=== PATIENT | female | born 1945 | race Caucasian/White ===

== ENCOUNTER 2023-05-29 10:07 | Outpatient (REF) | payer MEDICARE, SELFPAY ==
--- NOTE | ~2023-05-29 | XR_ITS ---
EXAMINATION: XR HIP, LEFT CLINICAL INFORMATION: Spondylolisthesis, lumbar region Left hip pain COMPARISON: None available. TECHNIQUE: Two views of the left hip. FINDINGS: The patient is status post right total hip replacement. The acetabular component is secured with 2 screws. No fracture. No periprosthetic lucency. Small calcification adjacent to the greater trochanter can be seen with gluteal tendinosis. XR/XR hip LT min 2V IMPRESSION: Satisfactory appearance of left total hip replacement without evidence of hardware complication.
--- NOTE | ~2023-05-29 | XR_ITS ---
EXAMINATION: XR LUMBOSACRAL SPINE CLINICAL INFORMATION: Spondylolisthesis, lumbar region COMPARISON: None available. TECHNIQUE: 4 views of the lumbar spine, inclusive of flexion and extension views, were obtained. FINDINGS: There is moderate curve of the lumbar spine, convex right. There is evidence of prior laminectomy at L3, L4 and L5. There are 5 nonrib-bearing lumbar-type vertebral bodies. The height of vertebral bodies is well-maintained. There is marked disc space narrowing with vacuum phenomenon at L1-L2 and L2-L3. There is multilevel degenerative facet joint disease. There is grade 1 anterolisthesis of L3 respect to L4 and L4 with respect to L5. This is without significant change with flexion and extension. There is partial visualization of bilateral total hip replacements. Multiple calcifications in the right side of the abdomen may be within the gallbladder. XR/XR lumbar spine 4V min IMPRESSION: 1. Moderate curve of the lumbar spine, convex right. 2. Status post laminectomy at L3, L4 and L5. 3. Multilevel degenerative disc disease and degenerative facet joint disease.
== END 2023-05-29 10:08 | disposition home or self-care (01) ==
LOC: HO.HOSX 10:07
PROVIDERS: PCP Internal Medicine; Visit Provider Physician Assistant
DX: M43.16 Spondylolisthesis, lumbar region (principal)
CPT/HCPCS: 72110; 73502

== ENCOUNTER 2023-05-29 10:07 | Outpatient (AMB) | payer MEDICARE, SELFPAY ==
--- NOTE | 2023-05-29 11:07 | HO.SPINEOV ---
Intake Intake Visit Reasons: spinal stenosis Intake Note: Mrs. Bowman is here today for low pain and left leg pain. MRI done @ [facility]/brought disc. 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 She is a 77-year-old female presents today for evaluation of a left lateral leg pain. She has had [address] Bee at [facility]. The last surgery was in 2019. She tells me that shortly after the surgery she noticed a pain in the outside of her left leg. At the time it was not all that bothersome but it has steadily gotten worse. She does not report any back pain other than some chronic aches and pains that she has had for many years. She saw him in the office and he was going to put rods and screws in her back, but then re-evaluated in said he did not think there was anything wrong with her back. She was somewhat frustrated by this. She has undergone injections at your office which she did not think that much in the way of helping her symptoms. She has not done any recent physical therapy but has done in the past. Her symptoms are aggravated with standing walking get better when she sits down. She has a hard time doing things like the dishes or making meals. She takes Tylenol and ibuprofen if she is having a bad day. She had an MRI showing some persistent compression of the foramen at the L2 and L3 foramen on the left and the L5 foramen on the right. PMH: Hypertension, arthritis, asthma, bronchitis. She recently had pneumonia and tells me that her PCP is working her up with some kind of serial CT scans of her chest check on something. She did not have any more details. History of neuropathy. She has had carpal tunnel surgery in both wrists, both hips replaced and as mentioned 3 back surgeries. Social hx: She does not smoke, she quit 30 years ago Medications: Lasix, omeprazole, raloxifene, montelukast, rosuvastatin, symbacort Allergies: Denies any drug allergy Physical exam: Her gross motor examination reveals that she has no focal motor deficits. She does have a positive straight leg raise as well as significant tenderness to palpation over left trochanteric bursa. Imaging review: She had a lumbar MRI done at [facility] in February 2023 showing a dextroscoliosis with significant compression in the foramen at L2 and L3 on the left and L4 and L5 on the right. Standing x-rays show slight worsening of the scoliosis but no significant lateral listhesis. Impression: 77-year-old female with 3 previous decompression surgeries by , who has developed a pain in her left lateral thigh with standing and walking over the last few years. She has treated it conservatively with physical therapy, pain medications. An L5 TFE was done with no relief. On my examination she had a tremendous amount of reproducible pain with palpation of the trochanteric bursa. Her MRI shows that she has significant scoliotic curvature with compression of the left L2 and L3 nerve in the foramen. Her symptoms are not classic for the distribution of these nerves, which would typically be going down the anterior portion of the thigh. This patient's symptoms are on the outer edge near the ITB band and the lateral thigh. Although her symptoms are not typical for the dermatomal pattern, I think we should try to localize where the symptoms are coming from with TFE at L2 and L3 on the left. If there is significant pain relief then we could consider surgical options after that. Also, it may be worth trying a trochanteric bursa injection as well because of the tenderness over that area. I will send her back to your office to get the TFE and she will call me with the results. Thank you for allowing us to care for your patient. The total time spent with this visit with this patient was 45 minutes reviewing history, physical exam, lumbar imaging review, and implementation of treatment plan or further diagnostic testing Gabriel Smith MD,PhD [facility] Orders: Orders XR lumbar spine 4V min Today M43.16 - Spondylolisthesis, lumbar region XR hip LT min 2V Today M43.16 - Spondylolisthesis, lumbar region Coding Level of Care Code New Pt Level 4 (34997) Diagnoses Spondylolisthesis, lumbar region M43.16
== END 2023-05-29 12:21 | disposition home or self-care (01) ==
PROVIDERS: PCP Internal Medicine; Referring Provider Physical Medicine & Rehabilitation; Visit Provider Physician Assistant
DX: M43.16 Spondylolisthesis, lumbar region (principal)
CPT/HCPCS: 99204

== ENCOUNTER 2023-07-08 15:09 | Outpatient (AMB) | payer MEDICARE, SELFPAY ==
--- NOTE | 2023-07-08 15:23 | A.SPINEOV_ITS ---
Intake Intake Visit Reasons: f/u after visit with Intake Note: Mrs. Bowman is here today for follow up. Sports Physician Required: No Assessment & Plan Assessment & Plan (1) Lumbago: Code(s): M54.50 - Low back pain, unspecified Plan Alyssia was seen today in follow up. We extensively discussed her continued left- sided pain symptoms down the lateral aspect of her thigh. We also discussed her recent left-sided TFE injections. She reports that after having her TFE injections completed at [facility] she had complete relief of her symptoms for 1 day then had a gradual return to baseline of her symptoms over the course of the next week. She reports that her left-sided lower extremity pain continues to significantly impede on her ability to complete her ADLs and live a meaningful life. Please refer to her previous office visit for a detailed description of her symptomology and exam. She was evaluated today alongside Dr. Smith. She continues to have symptoms outlined during her previous office visit, with her predominant pain complaint being a pain that radiates from her left low back/hip down her left lateral thigh terminating at the knee. Dr. Smith reviewed her MRI from [facility], and offered her a left-sided L2, L3 foraminotomy. She is aware that a foraminotomy in th esetting of scoliosis carries the risk that the symptoms return. Unfortunarely, she is not a candidate for scoliosis correction. She was agreeable to this plan is scheduled for surgery on 09/15/2023. Alyssia was given risk and benefits of surgery including but not limited to infection, hematoma, nerve injury, durotomy, weakness, bowel/bladder injury, persistent pain, as well as the option to continue with conservative treatment and patient wishes to proceed with surgery. She is aware they should stop her motrin / aspirin 7 days prior to surgery. All questions were answered to the best of our ability. If there is anything about this patients medical history that we have overlooked or concerns you have about us proceeding with surgery we would appreciate any input you can offer. Total amount of time spent in this visit was 45 minutes in discussion of symptoms, MRI imaging results, surgical scheduling and subsequent plan of care Ted Smith MD,PhD [facility] Coding Level of Care Code Est Pt Level 5 (86231) Diagnoses Lumbago M54.50
== END 2023-07-08 16:07 | disposition home or self-care (01) ==
PROVIDERS: PCP Internal Medicine; Visit Provider Neurological Surgery
DX: M54.50 Low back pain, unspecified (principal)
CPT/HCPCS: 99215

== ENCOUNTER → 2023-07-08 15:09 | Outpatient (BNVA) | payer MEDICARE, SELFPAY | PROVIDERS: PCP Internal Medicine; Visit Provider Neurological Surgery | DX: M54.50 Low back pain, unspecified (principal) | CPT/HCPCS: 99212 ==

== ENCOUNTER 2023-09-24 05:52 | Day surgery (SDC) | payer MEDICARE, SELFPAY ==
[2023-09-16 13:50] VITALS: BP 119/56; PULSE 94; RESP 16; O2SAT 94; BMI 33.4
--- NOTE | 2023-09-16 14:04 | HO.ANESPROP2 ---
Documented by User: Kacy Castellanos NP 09/23/23 08:21 HPI - Anesthesia Eval Consult details Narrative: 78yo F for L2-3 Laminectomy Lumbar Decompression (Foraminotomy) Recent RSV. Chronic occassional congested cough, slowly improving. Pending new patient pulmonary visit (after surgery). No CP. SOB with coughing but none at rest Asthma. Symbicort inhaler BID, Albuterol rare - last used couple months ago. New dizziness 08/2023, resolved per pt and nml holter. Last PCP visit 09/2023. Improving. Updated CXR Prior interstitial thickening upper zones less apparent. . Case reviewed with Dr Pike. SIRIA for re-eval DOS. PMFSH Active Problems Active Problems: All Active Problems (Updated 09/16/23 @ 13:43 by Meka Laws RN) Lumbago (Acute) Spondylolisthesis, lumbar region (Acute) Past Medical History Medical History Cough History of RSV infection Back pain Hx of basal cell carcinoma Spinal stenosis Weakness Lumbar radiculopathy Peripheral neuropathy Numbness Elevated cholesterol HTN (hypertension) Family History Family history of problems with anesthesia: No Surgical History Surgical History Hx of laminectomy (~2017) History of bilateral total hip arthroplasty History of bilateral carpal tunnel release History of Problems with Anesthesia: No Social History Social History Household Members: Spouse Housing: House Are you a primary social worker palliative care to a significant other at home: No Do you presently have visiting nurse or other home services: No Patient Tobacco Use Status: Former Tobacco user Quit Date: Tobacco use type: Cigarette Use of substances other than those prescribed or required for medical reasons: No Have you been hit, kicked, punched, or otherwise hurt by someone within the past year? If so, by whom?: No Are you DNR?: No Advance Directives: No Advance Directives Information Provided: Yes Advance Directives on File: No Recently lost weight without trying: No Poor oral hygiene: No Meds Allergies Allergy/AdvReac Type Severity Reaction Status Date / Time No Known Allergies Allergy Verified 09/24/23 06:24 Home Medications Medication Instructions Recorded Confirmed Last Taken Type allopurinol 100 mg tablet 300 mg PO DAILY 09/15/23 09/15/23 Unknown History aspirin 81 mg chewable tablet 81 mg PO DAILY 09/15/23 09/16/23 02/12/23 History budesonide-formoterol HFA 160 2 inh inhalation BID 09/15/23 09/16/23 09/24/23 History mcg-4.5 mcg/actuation aerosol inhaler (Symbicort) furosemide 20 mg tablet 20 mg PO .DAILY@1300 09/15/23 09/16/23 Unknown History furosemide 40 mg tablet 60 mg PO .DAILY @0800 09/15/23 09/16/23 Unknown History gabapentin 300 mg capsule 600 mg PO .DAILY@1300 09/15/23 09/16/23 09/24/23 History gabapentin 600 mg tablet 900 mg PO BID 09/15/23 09/16/23 09/24/23 History lisinopril 5 mg tablet 5 mg PO DAILY 09/15/23 09/15/23 Unknown History montelukast 10 mg tablet 10 mg PO BEDTIME 09/15/23 09/15/23 Unknown History omega 2-dcc-zof-fish oil 1,000 mg 1 cap PO DAILY 09/15/23 09/16/23 09/15/23 History (120 mg-180 mg) capsule (Fish Oil) omeprazole 20 mg capsule,delayed 20 mg PO DAILY 09/15/23 09/15/23 09/24/23 History release raloxifene 60 mg tablet 60 mg PO DAILY 09/15/23 09/15/23 Unknown History rosuvastatin 10 mg tablet 10 mg PO BEDTIME 09/15/23 09/15/23 Unknown History albuterol sulfate 90 mcg/actuation 2 inh inhalation Q4-6H PRN 09/16/23 09/16/23 Unknown History aerosol inhaler Shortness Of Breath Or Wheezing Exam Height,Weight and Vital Signs: Height 4 ft 10 in Weight 72.575 kg Last Vital Signs Pulse 94 09/16/23 13:50 Resp 16 09/16/23 13:50 BP 119/56 L 09/16/23 13:50 Pulse Ox 94 09/16/23 13:50 O2 Del Method Room Air 09/16/23 13:50 Pertinent Lab Results Pertinent Lab Results: CBC 04/2023 from outside facility WNL BMP 04/2023 from outside facility WNL except BUN/Creat elevated @ 31/1.42 Narrative Narrative: CXR 08/2023 from [facility] Heart normal. Lungs clear. Prior interstitial thickening upper zones less apparent. Otherwise negative. Pleural spaces and bones unremarkable. 7 Day Holter 08/2023 SR with avg HR of 84bpm. No pauses >2.5secs. Rare isolated ectopy and occasional brief atrial runs detected. 1 monitor activation corresponded to SR. EKG 08/2023 SR Airway Mallampati Class: III TM Dist: >3cm Neck ROM: Full Loose/Missing/Broken Teeth: Yes (missing molars, 1 x implant left lower front) Heart: RRR Lungs: CTAB Assessment and Plan Assessment Anesthesia Assessment: Anesthesia Plan Discussed and PAT Visit Final Anesthetic Review Family History of Problems with Anesthesia: No History of Problems with Anesthesia: No Documented by User: Rafat Orozco MD 09/24/23 08:12 [facility] Past Medical History Medical History Cough History of RSV infection Back pain Hx of basal cell carcinoma Spinal stenosis Weakness Lumbar radiculopathy Peripheral neuropathy Numbness Elevated cholesterol HTN (hypertension) Surgical History Surgical History Hx of laminectomy (~2017) History of bilateral total hip arthroplasty History of bilateral carpal tunnel release Social History Social History Household Members: Spouse Housing: House Are you a primary social worker palliative care to a significant other at home: No Do you presently have visiting nurse or other home services: No Patient Tobacco Use Status: Former Tobacco user Quit Date: Tobacco use type: Cigarette Use of substances other than those prescribed or required for medical reasons: No Have you been hit, kicked, punched, or otherwise hurt by someone within the past year? If so, by whom?: No Are you DNR?: No Advance Directives: No Advance Directives Information Provided: Yes Advance Directives on File: No Recently lost weight without trying: No Poor oral hygiene: No Meds Allergies Allergy/AdvReac Type Severity Reaction Status Date / Time No Known Allergies Allergy Verified 09/24/23 06:24 Home Medications Medication Instructions Recorded Confirmed Last Taken Type allopurinol 100 mg tablet 300 mg PO DAILY 09/15/23 09/15/23 Unknown History aspirin 81 mg chewable tablet 81 mg PO DAILY 09/15/23 09/16/23 02/12/23 History budesonide-formoterol HFA 160 2 inh inhalation BID 09/15/23 09/16/23 09/24/23 History mcg-4.5 mcg/actuation aerosol inhaler (Symbicort) furosemide 20 mg tablet 20 mg PO .DAILY@1300 09/15/23 09/16/23 Unknown History furosemide 40 mg tablet 60 mg PO .DAILY @0800 09/15/23 09/16/23 Unknown History gabapentin 300 mg capsule 600 mg PO .DAILY@1300 09/15/23 09/16/23 09/24/23 History gabapentin 600 mg tablet 900 mg PO BID 09/15/23 09/16/23 09/24/23 History lisinopril 5 mg tablet 5 mg PO DAILY 09/15/23 09/15/23 Unknown History montelukast 10 mg tablet 10 mg PO BEDTIME 09/15/23 09/15/23 Unknown History omega 3-gpx-wwz-fish oil 1,000 mg 1 cap PO DAILY 09/15/23 09/16/23 09/15/23 History (120 mg-180 mg) capsule (Fish Oil) omeprazole 20 mg capsule,delayed 20 mg PO DAILY 09/15/23 09/15/23 09/24/23 History release raloxifene 60 mg tablet 60 mg PO DAILY 09/15/23 09/15/23 Unknown History rosuvastatin 10 mg tablet 10 mg PO BEDTIME 09/15/23 09/15/23 Unknown History albuterol sulfate 90 mcg/actuation 2 inh inhalation Q4-6H PRN 09/16/23 09/16/23 Unknown History aerosol inhaler Shortness Of Breath Or Wheezing Assessment and Plan Final Anesthetic Review NPO: Yes ASA Class: III Final Preanesthetic Review: No Changes in Pt Med Stat, Meds/Allgs Chart Reviewed, Consent Obtained/Reviewed and Anes Risks/Benef Reviewed Patient Risk: Intermediate Procedure Risk: Low Anesthetic Plan Anesthetic Plan: GA Disposition: Standard PACU and Inp. Admit - Standard Bed
[2023-09-24] VITALS (15 sets, daily range): BP systolic 105–136; BP diastolic 45–87; PULSE 84–92; RESP 14–20; TEMP 36.2–36.9; O2SAT 95–99; BMI 34.3
--- NOTE | ~2023-09-24 | FL_ITS ---
CLINICAL INDICATION: Back pain. FINDINGS: Technical assistance and equipment were provided by the Department of Radiology during intraoperative fluoroscopy for L2-3 laminectomy. 2, limited fluoroscopic spot images are submitted. A radiologist was not present during the procedure. Images demonstrate surgical retractors and hardware to the left of the apex of the lumbar spinal curvature, probably at the level of L2, although it is difficult to ascertain the exact level due to normal variant anatomy and incomplete bony landmarks. The images are available for review on PACS. TOTAL FLUOROSCOPY TIME: 0.1 minutes. DOSE AREA PRODUCT: 0.10 mGy-m2 (milligray-meter squared) FL/FL guidance in OR IMPRESSION: Technical assistance and equipment provided by the Department of Radiology during intraoperative fluoroscopy, as above. Please see operative report for further details.
[2023-09-24] MEDS: Lactated Ringers 1,000 ML 100 ML IVCONT (06:39)
[2023-09-24] MEDS: Albuterol Sulfate (0.083%) 2.5 MG/3 ML VIAL.NEB INHALE (06:45)
--- NOTE | 2023-09-24 07:02 | MHC.SHP ---
Pre-Procedural Eval Section A Date of Service: 09/24/23 The patient is an INPATIENT: No Changes since office visit: No Cold of Flu in the past 2 weeks, No New Medical Problems, No Changes in Medication and No Patient answered all questions The History & Physical has been completed within 30 days and I have reviewed it.: No Section B Chief Complaint: Low back pain, unspecified Allergies: Allergies Allergy/AdvReac Type Severity Reaction Status Date / Time No Known Allergies Allergy Verified 09/24/23 06:24 Review of Systems Sugical H&P ROS: Negative: Constitution, Cardiovascular, Respiratory, Neurological, Psychiatric, Hem-Onc, Allergic/Immunologic, Gastrointestinal, Genitourinary, Musculoskeletal, Integumentary, Endocrine and Eyes/Ears/Nose/Throat Exam Surgical H&P Exam: Not Evaluated: HEENT, Not Evaluated: Heart, Not Evaluated: Lungs, Not Evaluated: Extremities, Not Evaluated: Abdomen, Not Evaluated: Skin and Not Evaluated: Neurological Plan Diagnosis/Plan: Unchanged Left L2 and L3 foraminotomy Time Spent With Patient Time: Total time managing care of this patient today _5___ minutes.
[2023-09-24] MEDS: methocarbamoL 750 MG TABLET PO (07:32)
--- NOTE | 2023-09-24 07:37 | PC.NURSE ---
Dr. Orozco aware that patient was to be evaluated by anesthesia upon arrival due to lung health. Patient has some crackles in bilateral bases and left upper has expiratory wheezes. nebulizer treatment given as ordered and lung sounds remained the same. 94-95% RA. occ. cough noted. Patient has pulmonology appt. on 10/07 due to cough that has been consistent for a few months, and RSV three weeks ago with prednisone taper completed. Patient states has been taking lasix for years due to BLE, but cough is new months ago.
--- NOTE | 2023-09-24 09:17 | PM.DS ---
DS: Providers Provider Date of Service: 09/24/23 Date of discharge: 09/24/23 Primary care physician: Nonstaff Physician Admitting clinician: Jamie Smith DS: Diagnosis Discharge Diagnosis (1) Lumbago: Status: Acute (2) Spondylolisthesis, lumbar region: Status: Acute DS: Summary Time Attestation Discharge coordination time: Less than 30 minutes Quality: Safe Use of Opioids Does Pt have an Active Cancer Diagnosis on the Problem List?: No Quality: Stroke Does the patient have a stroke diagnosis?: No Physical Exam Vital Signs: Vital Signs: Last Vital Signs Temp 98.5 F 09/24/23 06:45 Pulse 92 09/24/23 06:46 Resp 14 09/24/23 06:46 BP 130/45 L 09/24/23 06:45 Pulse Ox 95 09/24/23 06:45 O2 Del Method Room Air 09/24/23 06:45 BMI result Body Mass Index 34.3 Discharge Plan Discharge Patient Disposition: Home, Self-Care Referrals: Physician,Nonstaff [Primary Care Provider] - 1 Week Discharge Medications: New tramadol 50 mg tablet 50 mg PO Q6H PRN (Reason: pain) Qty: 20 0RF Continued allopurinol 100 mg tablet 300 mg PO DAILY aspirin 81 mg Tablet,Chewable 81 mg PO DAILY furosemide 20 mg Tablet 20 mg PO .DAILY@1300 Patient Comments: 60 mg am, 20 mg late afternoon omega 2-nyt-mwr-fish oil [Fish Oil] 1,000 mg (120 mg-180 mg) Capsule 1 cap PO DAILY gabapentin 600 mg tablet 900 mg PO BID gabapentin 300 mg capsule 600 mg PO .DAILY@1300 omeprazole 20 mg capsule,delayed release(DR/EC) 20 mg PO DAILY raloxifene 60 mg tablet 60 mg PO DAILY montelukast 10 mg tablet 10 mg PO BEDTIME rosuvastatin 10 mg tablet 10 mg PO BEDTIME budesonide-formoterol [Symbicort] 160-4.5 mcg/actuation HFA aerosol inhaler 2 inh inhalation BID furosemide 40 mg tablet 60 mg PO .DAILY @0800 lisinopril 5 mg Tablet 5 mg PO DAILY albuterol sulfate 90 mcg/actuation HFA aerosol inhaler 2 inh inhalation Q4-6H PRN (Reason: Shortness Of Breath Or Wheezing) Discharge Orders: Discharge Order (Routine); Ordered 09/24/23 Ordered By: Gabriel Gonzalez Diet: Advance to usual diet Activity on Discharge: As tolerated Activity Restrictions/Additional Instructions: After your spinal surgery we ask you to observe the following restrictions/guidelines: We were unable to to complete the surgery as planned because of the previous scar tissue and the difficulty of finding the nerve in the scar tissue. Dr Smith would like to get an outpatient CT scan of your spine to re-evaluate your bone quality and anatomy to see if we can do spinal fusion. YOU HAD A SMALL SPINAL FLUID LEAK SEEN AT THE TIME OF SURGERY. IT IS NORMAL TO EXPERIENCE MILD HEADACHES WHEN THIS HAPPENS. IF YOU EXPERIENCE SEVERE HEADACHES PLEASE CALL OUR OFFICE TO UPDATE US. USUALLY IT WILL GO AWAY IF YOU STAY FLAT IN BED FOR A DAY. IF YOU EXPERIENCE ANY LEAKING FROM YOUR WOUND WHICH LOOKS LIKE CLEAR WATER, WE ASK THAT YOU CALL US RIGHT AWAY. [phone] Activity: It is normal to feel some discomfort as you increase your activity, but that will improve with time. We ask you avoid heavy lifting or acitivities that cause pain. As a general rule, 8lbs is a safe limit for lifting right after surgery. Walk as much as you feel comfortable but not to exhaustion. You will feel extra tired the first few days after surgery. Stay well hydrated. It is OK to walk up and down stairs You may return to driving when you are off narcotics (such as vicodin, oxycodone, dilaudid, etc), and you are back to normal functional capacity. If you have any concerns please check with office before driving. Return to work is specific to each patient and each surgery, so please speak with your doctor/PA at first follow up. Please bring paperwork such as FMLA at that time if you need it filled out. Medications: For optimum pain control, it is best to start with a combination of 500 mg of Tylenol every 4 hours with 600 mg of Motrin every 8 hours, and use narcotics as needed in between for breakthrough pain. We will give you a short supply of narcotics after surgery (usually one weeks worth). If you need more please call the office but do not use more than prescribed. You will need to give our office 48 hours notice if you need narcotics refilled and we do not fill narcotics on weekends or evenings. If you are on a narcotic, it is a good idea to take a stool softener such as colace or senna to avoid constipation If you take blood thinner such as aspirin, Plavix, Coumadin, Effient, Eliquis etc for conditions such as Afib, DVT, Pulmonary embolus, coronary disease, stents etc please speak with your surgeon about specific details as to when you can resume these medications. You can resume NSAIDs on post op day 1 (eg: Motrin, Naproxen, etc). Follow up: Please call the office, , after surgery to arrange a 3 week follow up for wound check. Wound Care: You may remove your dressing on the first day after surgery. You may leave open to air. Please do not remove the steri strips underneath. they will fall off on their own in one week. IT IS NORMAL FOR THE WOUND TO OOZE OR BE BLOODY FOR A FEW DAYS AFTER SURGERY. IF THIS HAPPENS JUST PLACE NEW DRESSING OVER IT TO AVOID STAINING CLOTHES. You may shower on post op day # 1 We ask that you do not let the water soak the wound. If it does get wet, just towel dry lightly. Please do not scrub your incision or place any type of chemical/ointment on the wound. No tub baths, pools or jacuzzis for one month. If you have any leaking or redness from your wound, or fevers, please call office
[2023-09-24] MEDS: HYDROmorphone HCl 0.5 MG/0.5 ML SYRINGE 0.25 MG IVPUSH ×4 (09:35→10:14)
--- NOTE | 2023-09-24 10:26 | W.PM.OPN ---
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 Status post L2-L5 laminectomy Operation: Partial L2 left foraminotomy with use of microscope Consent Informed Consent was obtained for this operation. I have explained the nature, purpose and benefits of the operation. I have discussed the risks and benefit of the operation including possible complications or adverse events with patient/family. Alternative(s) were discussed with the patient with their relative benefits and risks as well as the consequences of not accepting the operation were included in obtaining consent. Surgeon: CURLY AMBRIZ MD, PHD Procedure Assisted By: BILL Ramos Description of Procedure This 78-year-old female is suffering from male left lumbar radiculopathy due to foraminal stenosis L2 and L3 on the left side in the setting of a degenerative scoliosis. In addition there isn't grade 2 L4-5 spondylolisthesis. The idea situation would be to correct the scoliosis but the initial thought was that a L2 and L3 foraminotomy could be attempted. The procedure complications were explained. The patient was consented. The patient was brought to the operating room and endotracheally intubated. The patient was turned in prone position on the Perfecto frame. Prep and drape was done followed by timeout. Physician expanded function dental assistant provided access. The previous mid lumbar incision was partly opened. The dissection was carried out towards the L2-3 and L3-4 facet joint. The transverse processesi were exposed. I worked my way medially to warts the previous laminectomy defect and ran immediately into a spinal fluid leak. It became clear that the initial plan of working my way from medial to lateral to decompress the nerve roots was not going to be a safe procedure. To decompress the nerve root we had to work from extraforaminal towards the medial side which would entail a complete facetectomy a for instability of the spinal column. Therefore after I drilled down the L2-3 facet joint partially I decided to not further attempt to decompress the nerve roots as again this would create more instability and more pain for the patient. The durotomy was covered with a piece of DuraGen tissue coil. The microscope was removed. Hemostasis was done. Incision was closed in 3 layers with a running nylon for the skin incision. An OpSite with Tegaderm was used to cover the incision. All sponge needle counts were correct. Patient was extubated and transported in stable is to recovery room. LC patient may clinic with a CT scan of the lumbar spine to decide if a camp for partial correction of the scoliosis through a minimally invasive fusion approach. Anesthesia: General Estimated Blood Loss (ml): Minimal Duration of Surgery: Under 60 Minutes Postoperative Plan: Discharge to home
== END 2023-09-24 11:26 | disposition home or self-care (01) ==
PROVIDERS: Visit Provider Neurological Surgery
PROC: (CPT 63047; principal; 2023-09-24 07:30)
DX: M43.16 Spondylolisthesis, lumbar region (principal); M54.50 Low back pain, unspecified; M41.86 Other forms of scoliosis, lumbar region; G62.9 Polyneuropathy, unspecified; I10 Essential (primary) hypertension; E78.00 Pure hypercholesterolemia, unspecified; R05.8 Other specified cough; J45.909 Unspecified asthma, uncomplicated; Z79.51 Long term (current) use of inhaled steroids; Z79.82 Long term (current) use of aspirin; Z79.899 Other long term (current) drug therapy; Z87.09 Personal history of other diseases of the respiratory system; Z85.828 Personal history of other malignant neoplasm of skin; Z87.891 Personal history of nicotine dependence; Z98.890 Other specified postprocedural states
CPT/HCPCS: 63047; 94640; J0131; J0690; J1170; J2371; J2704; J3010; Q4100

== ENCOUNTER → 2023-09-24 05:52 | Outpatient (BNV) | payer MEDICARE, SELFPAY | PROVIDERS: Visit Provider Physician Assistant | DX: M43.16 Spondylolisthesis, lumbar region (principal); M54.50 Low back pain, unspecified | CPT/HCPCS: 63047; 99499 ==

== ENCOUNTER 2023-10-08 09:51 | Outpatient (AMB) | payer MEDICARE, SELFPAY ==
--- NOTE | 2023-10-08 09:53 | MHC.OFFVIS ---
Intake Intake Visit Reasons: 14 day suture removal Intake Note: Pt here to remove suture Supply Chain Coordinator Required: No Allergies No Known Allergies Allergy (Verified 09/24/23 06:24) [facility] Medical History Cough History of RSV infection Back pain Hx of basal cell carcinoma Spinal stenosis Weakness Lumbar radiculopathy Peripheral neuropathy Numbness Elevated cholesterol HTN (hypertension) Surgical History Hx of laminectomy (~2017) History of bilateral total hip arthroplasty History of bilateral carpal tunnel release Social History Household Members: Spouse Housing: House Are you a primary manager progressive care to a significant other at home: No Do you presently have visiting nurse or other home services: No Patient Tobacco Use Status: Former Tobacco user Quit Date: Tobacco use type: Cigarette Assessment & Plan Assessment & Plan (1) Cerebrospinal fluid leak: Code(s): G96.00 - Cerebrospinal fluid leak, unspecified Plan Procedure: Partial L2 left foraminotomy Alyssia comes in today for her 1st postoperative visit and suture removal of running sutures over incision site. She had an incidental durotomy during her procedure. The durotomy was closed with DuraGen. The left-sided foraminotomy could not be fully completed. Postoperatively the patient returned home. She had no significant symptoms of CSF leak/durotomy noted in the PACU before being discharged. She ended up having some continued persistent pain after surgery and was seen again in the emergency department in [place] as a result of this. She ended up being transitioned to a rehab center in the [facility] area to help her heal postoperatively. She was then sent back to the emergency room again by nursing staff at the rehabilitation center who reported some clear fluid leaking from the incision site. When emergency room providers called our office they reported no postural change in reported symptoms, no headaches, no dizziness, no lightheadedness, and no other neurological symptoms. They also reported that they held her for multiple hours and did not note any significant leakage from the incision site. The rehabilitation center attempted to call us 2 days ago stating that the patient was doing well and requested that they remove her running suture at their facility. I asked that the patient instead be seen in our office today in order to evaluate the multiple concerns that have arisen since her surgery. I also wanted to evaluate the patient before her sutures were removed, as they should not be removed if the patient has a continued CSF leak. The patient came in today in a wheelchair accompanied by her . On examination it is noted that the patient had reported postural changes of symptoms, including dizziness and lightheadedness when standing up. The dressing that was covering her incision site was soaked through with clear fluid. Her sweat pants were also wet to the touch with clear fluid near the posterior waistline. There was notable small beads of clear fluid also leaking from the incision site. After examination I went next door to the hospital to discuss the patient case with Dr. Smith while the patient waited in the exam room. After reviewing the patient case and examination Dr. Smith decided to have the patient seen through the emergency department and monitored while we have her added onto the surgical schedule today for repair of her cerebrospinal fluid leak. This plan was discussed with the patient, who is agreeable to this. We discussed risks/benefits of having another surgical procedure. She understands that the purpose of this procedure is to repair her cerebrospinal fluid leak and not to attempt to redo her left-sided foraminotomy. She is not on blood thinners today and did not take aspirin today. She is agreeable to all risks, and would like to proceed with surgery. Ted Smith MD,PhD [facility] Coding Level of Care Code Global (73243) Diagnoses Cerebrospinal fluid leak G96.00
== END 2023-10-08 11:10 | disposition home or self-care (01) ==
PROVIDERS: Visit Provider Physician Assistant
DX: G96.00 Cerebrospinal fluid leak, unspecified (principal)
CPT/HCPCS: 99024

== ENCOUNTER → 2023-10-08 09:51 | Outpatient (BNVA) | payer MEDICARE, SELFPAY | PROVIDERS: Visit Provider Physician Assistant ==

== ENCOUNTER 2023-10-08 11:01 | Inpatient (IN) | payer MEDICARE, SELFPAY ==
[2023-10-08] VITALS (27 sets, daily range): BP systolic 120–142; BP diastolic 48–80; PULSE 84–104; RESP 15–22; TEMP 36–37; O2SAT 94–100; BMI 30.3
--- NOTE | 2023-10-08 11:37 | ED_ITS ---
HPI - Wound/Laceration General Chief Complaint: Wound/Laceration Stated Complaint: wound check surgery 09 24 23 Time Seen by Provider: 10/08/23 11:47 Source: patient Mode of arrival: ambulatory Limitations: no limitations History of Present Illness HPI narrative: 78-year-old female status post partial L2 left foraminotomy w/ incidental durotomy ( which was closed w/ Duragen)she was presenting from the neuro spine office to our ED in a wheelchair w/ dizziness upon standing, back discomfort and a saturated post operative dressing, reports that the surgical site is still leaking. Patient denies chest pain, shortness of breath, nausea, vomiting, abdominal pain, visual disturbances, abdominal pain, fevers and chills. Related Data Home Medications Medication Instructions Recorded Confirmed allopurinol 100 mg tablet 300 mg PO DAILY 09/15/23 09/15/23 aspirin 81 mg chewable tablet 81 mg PO DAILY 09/15/23 09/16/23 budesonide-formoterol HFA 160 2 inh inhalation BID 09/15/23 09/16/23 mcg-4.5 mcg/actuation aerosol inhaler (Symbicort) furosemide 20 mg tablet 20 mg PO .DAILY@1300 09/15/23 09/16/23 furosemide 40 mg tablet 60 mg PO .DAILY @0800 09/15/23 09/16/23 gabapentin 300 mg capsule 600 mg PO .DAILY@1300 09/15/23 09/16/23 gabapentin 600 mg tablet 900 mg PO BID 09/15/23 09/16/23 lisinopril 5 mg tablet 5 mg PO DAILY 09/15/23 09/15/23 montelukast 10 mg tablet 10 mg PO BEDTIME 09/15/23 09/15/23 omega 5-nhk-vtg-fish oil 1,000 mg 1 cap PO DAILY 09/15/23 09/16/23 (120 mg-180 mg) capsule (Fish Oil) omeprazole 20 mg capsule,delayed 20 mg PO DAILY 09/15/23 09/15/23 release raloxifene 60 mg tablet 60 mg PO DAILY 09/15/23 09/15/23 rosuvastatin 10 mg tablet 10 mg PO BEDTIME 09/15/23 09/15/23 albuterol sulfate 90 mcg/actuation 2 inh inhalation Q4-6H PRN 09/16/23 09/16/23 aerosol inhaler Shortness Of Breath Or Wheezing Previous Rx's Medication Instructions Recorded tramadol 50 mg tablet 50 mg PO Q6H PRN pain #20 tabs 09/24/23 Allergies Allergy/AdvReac Type Severity Reaction Status Date / Time No Known Allergies Allergy Verified 10/08/23 11:38 Review of Systems 2 Review of Systems: Constitutional : No Weight loss, No Fever, No Chills, No Fatigue, No Malaise ENT/Mouth : No sore throat, No Rhinorrhea Eyes: No Eye Pain, No Swelling, No Redness Cardiovascular : No Chest Pain, No SOB, No Dyspnea on Exertion, No Orthopnea, No Edema, No Palpitations Respiratory : No Cough, No Sputum, No Wheezing Gastrointestinal : No Nausea, No Vomiting, No Diarrhea, No Constipation, No abdominal Pain, No Hematochezia, No Melena Genitourinary : No Dysuria, No Urinary Frequency, No Hematuria, Musculoskeletal : No joint pain, No Myalgias, No Joint Swelling Skin : No Skin Lesions, No rash Neuro : No Weakness, No Numbness, + Dizziness, No Headache Psych : No Anxiety/Panic, No Depression All other systems reviewed and are negative Yes all other systems are reviewed and are negative [facility] Past Medical History Attestation statement: The following information was validated with the patient. Source: old records reviewed and nursing notes reviewed Medical History Cough History of RSV infection Back pain Hx of basal cell carcinoma Spinal stenosis Weakness Lumbar radiculopathy Peripheral neuropathy Numbness Elevated cholesterol HTN (hypertension) Surgical History Hx of laminectomy (~2017) History of bilateral total hip arthroplasty History of bilateral carpal tunnel release Social History Social History Household Members: Spouse Housing: House Are you a primary neonatal intensive care nurse to a significant other at home: No Do you presently have visiting nurse or other home services: No Patient Tobacco Use Status: Former Tobacco user Quit Date: Tobacco use type: Cigarette Smoked in Last 30 Days: No Use of substances other than those prescribed or required for medical reasons: No Advance Directives: No Advance Directives Information Provided: Yes Physical Exam 2 Vital Signs: Vital Signs: Last Vital Signs Temp 98.6 F 10/08/23 12:06 Pulse 88 10/08/23 12:06 Resp 18 10/08/23 12:06 BP 122/60 10/08/23 12:06 Pulse Ox 94 10/08/23 12:06 O2 Del Method Room Air 10/08/23 12:06 BMI result Body Mass Index 30.3 vss Appearance: Alert.? Oriented X3.? No acute distress.? Head: Normocephalic, atraumatic, no step-offs or deformities Eyes: Pupils equal, round and reactive to light.? Extraocular movements intact and pain-free. ENT: Pharynx normal.? Neck: Normal inspection.? Neck supple.? CVS: Normal heart rate and rhythm.? Pulses normal.? Respiratory: No respiratory distress.? Breath sounds normal.? Abdomen: Soft and nontender.? Skin: Skin warm and dry.? Normal skin color.? Normal skin turgor.? Extremities: No lower extremity edema.? No calf ttp. 5/5 strength to bilateral upper and lower extremities Back: No midline tenderness, no C-spine tenderness, full range of motion, no CVA tenderness bilaterally + L2 region w/ saturated dressing w/ clear fluids surrounding and actively leaking slowly. Neuro: Oriented X 3.? No motor deficit.? No sensory deficit. CN 2-12 intact . Normal udhbfr-lz-bjaq, negative Romberg. Course Course Course Narrative: This is an RME: Additional HPI, ROS, PE not included below will be deferred to primary provider. This is a 60-[id number]-female presenting to the emergency department for evaluation of CSF leak from wound site after spinal procedure performed on September 24, 2023. Patient had a partial L2 left Foraminotomy. She was seen in the office today for suture removal however it was noted that she was having a CSF leak and was told to reports the emergency room. Of note,, patient will be added onto the surgical schedule today for repair of CSF leak. Patient brought back to the emergency room for re-evaluation. She is endorsing some dizziness and headaches. Reporting some difficulty with word finding. Reevaluation(s) Reevaluation #1: Spoke to Dr. Smith Neuro Spine would like me to reach out to BILL Castillo who states patient to go to the OR at 1 Time: 12:11 Reevaluation #2: Dr. Smith and BILL Castillo here at bedside. Time: 12:16 Reevaluation #3: Patient is starting to slur her words and have a right-sided facial droop, difficulty with word finding ( patient states this may have started earlier this morning unclear). My attending also at the bedside. states low suspion for stroke. I did reach out to neuro spine BILL Castillo. Pending response. Time: 12:29 Additional Reevaluation(s): 1237 Neuro spine here full salazar assessment intact. They do not feel as though patient needs head CT. They would like to take her to the OR and stabilize her current condition. Likely sx secondary to CSF leak 1241 Patient to go to the OR Medical Decision Making Medical Decision Making [facility] Narrative: 1203 78-year-old female presents with postoperative complication ( clear drainage from site) status post L2 left for anatomy performed on 09/24/[address] Smith PE - L2 region w/ saturated dressing w/ clear fluids surrounding and actively leaking slowly. History and physical exam were concerning for L2 left for anatomy with complication question cerebral spinal fluid leak from operative site. No signs of active infection. Dizziness likely secondary to CSF leak. Unlikely stroke, posterior stroke. Will speak to neuro spine at this time and obtain labs and EKG Differential Diagnosis Differential Diagnoses: The differential diagnosis associated with the presentation includes History and physical exam were concerning for L2 left for anatomy with complication question cerebral spinal fluid leak from operative site. No signs of active infection. Dizziness likely secondary to CSF leak. Unlikely stroke, posterior stroke. Admission/Observation Consideration of admission/observation: Escalation of care including admission/observation considered Consult Healthcare Provider Management of the patient was discussed with: Hotel Services Sales Representative (Neuro spine ) Lab Data [facility] Lab Attestation statement: I reviewed the patient's lab results. 10/08/23 12:03 10/08/23 12:03 Labs: Lab Results 10/08/23 Range/Units 12:03 WBC 13.1 H (4.8-10.8) X10*3/uL RBC 4.07 L (4.20-5.50) X10*6/uL Hgb 12.8 (12.0-16.0) g/dl Hct 39.9 (37.0-47.0) % MCV 98.0 (80.0-98.0) fL MCH 31.4 (27.0-33.0) pg MCHC 32.1 (31.0-35.0) g/dl RDW 14.9 (11.0-16.0) % Plt Count 339 (160-400) X10*3/uL MPV 10.9 (9.4-12.3) fL Immature Gran % (Auto) 0.8 H (0.0-0.4) % Neut % (Auto) 74.7 H (45-73) % Lymph % (Auto) 16.4 L (20-40) % [place] % (Auto) 6.6 (2-11) % Eos % (Auto) 0.9 (0-4) % Baso % (Auto) 0.6 (0-2) % Lymph # (Auto) 2.2 (1.2-4.9) X10*3/uL [place] # (Auto) 0.9 (0.1-1.2) X10*3/uL Eos # (Auto) 0.1 (0.0-0.4) X10*3/uL Baso # (Auto) 0.1 (0.0-0.2) X10*3/uL Abs Immat Gran (auto) 0.11 H (0.00-0.03) X10*3/uL Absolute Neuts (auto) 9.8 H (2.0-8.3) x10*3/uL Absolute Nucleated RBC 0.000 (0.0-0.012) X10*3/uL Nucleated RBC % (auto) 0.0 (0.0-0.2) /100WBC PT 12.7 (11.1-13.3) SEC INR 1.0 (0.9-1.1) Sodium 138 (135-145) mmol/L Potassium 4.7 (3.3-5.1) mmol/L Chloride 101 (96-108) mmol/L Carbon Dioxide 25 (22-29) mmol/L Anion Gap 17 (12-20) BUN 19 H (9-16) mg/dL Creatinine 1.32 (0.5-1.4) mg/dL Estim Creat Clear Calc 29.0 Estimated GFR 39 Random Glucose 122 H (60-115) mg/dL Calcium 10.2 (8.4-10.2) mg/dL Total Bilirubin 0.6 (0.0-1.0) mg/dL AST 72 H (5-31) U/L ALT 23 (0-31) U/L Alkaline Phosphatase 74 (39-117) U/L Total Protein 7.9 (6.5-8.0) g/dL Albumin 3.8 (3.5-5.0) g/dL Independent Interpretation I performed an independent interpretation of an: EKG Radiology Impression Discussion of test interpretation with radiology: I have reviewed the radiologist's reading. Critical Care Time Critical Care Time Critical Care Time: Yes Total Critical Care Time: 45 Attestation: I attest to this time spent taking care of the patient, obtaining history, physical, reviewing labs, imaging, speaking to my attending, speaking to specialist. Discharge Plan Discharge Prescriptions: No Action allopurinol 100 mg tablet 300 mg PO DAILY aspirin 81 mg Tablet,Chewable 81 mg PO DAILY furosemide 20 mg Tablet 20 mg PO .DAILY@1300 Patient Comments: 60 mg am, 20 mg late afternoon omega 1-wki-znu-fish oil [Fish Oil] 1,000 mg (120 mg-180 mg) Capsule 1 cap PO DAILY gabapentin 600 mg tablet 900 mg PO BID gabapentin 300 mg capsule 600 mg PO .DAILY@1300 omeprazole 20 mg capsule,delayed release(DR/EC) 20 mg PO DAILY raloxifene 60 mg tablet 60 mg PO DAILY montelukast 10 mg tablet 10 mg PO BEDTIME rosuvastatin 10 mg tablet 10 mg PO BEDTIME budesonide-formoterol [Symbicort] 160-4.5 mcg/actuation HFA aerosol inhaler 2 inh inhalation BID furosemide 40 mg tablet 60 mg PO .DAILY @0800 lisinopril 5 mg Tablet 5 mg PO DAILY albuterol sulfate 90 mcg/actuation HFA aerosol inhaler 2 inh inhalation Q4-6H PRN (Reason: Shortness Of Breath Or Wheezing) tramadol 50 mg tablet 50 mg PO Q6H PRN (Reason: pain) Qty: 20 0RF
[2023-10-08 12:08] LABS: MANUAL DIFF FLAG NO
--- NOTE | 2023-10-08 12:10 | ECG_ITS ---
Test Reason : PRE-OP Blood Pressure : / mmHG Vent. Rate : 092 BPM Atrial Rate : 092 BPM P-R Int : 186 ms QRS Dur : 076 ms QT Int : 372 ms P-R-T Axes : 042 001 071 degrees QTc Int : 460 ms Normal sinus rhythm Possible Inferior infarct , age undetermined Anterolateral T wave inversion- consider ischemia Abnormal ECG No previous ECGs available Referred By: Aurelia Henriquez Electronically Signed By:Trae Victoria
[2023-10-08 12:12] LABS: Basophils Absolute Auto 0.1 X10*3/uL (0.0-0.2); Basophils Percent Auto 0.6 % (0-2); Eosinophils Absolute Auto 0.1 X10*3/uL (0.0-0.4); Eosinophils Percent Auto 0.9 % (0-4); Hematocrit 39.9 % (37.0-47.0); Hemoglobin 12.8 g/dl (12.0-16.0); Imm Gran Abs Auto 0.11 X10*3/uL (0.00-0.03); Imm Gran Pct Auto 0.8 % (0.0-0.4); Lymphocytes Absolute Auto 2.2 X10*3/uL (1.2-4.9); Lymphocytes Percent Auto 16.4 % (20-40); Mean Corpuscular HGB Conc 32.1 g/dl (31.0-35.0); Mean Corpuscular Hemoglobin 31.4 pg (27.0-33.0); Mean Platelet Volume 10.9 fL (9.4-12.3); Monocytes Absolute Auto 0.9 X10*3/uL (0.1-1.2); Monocytes Percent Auto 6.6 % (2-11); Neutrophils Absolute Auto 9.8 x10*3/uL (2.0-8.3); Neutrophils Percent Auto 74.7 % (45-73); Platelet Count 339 X10*3/uL (160-400); Red Blood Count 4.07 X10*6/uL (4.20-5.50); Red Cell Distribution Width 14.9 % (11.0-16.0); White Blood Count 13.1 X10*3/uL (4.8-10.8)
[2023-10-08 12:20] LABS: Prothrombin Time 12.7 SEC (11.1-13.3)
[2023-10-08 12:31] LABS: Alanine Aminotransferase 23 U/L (0-31); Albumin Level 3.8 g/dL (3.5-5.0); Alkaline Phosphatase 74 U/L (39-117); Anion Gap 17 (12-20); Aspartate Amino Transferase 72 U/L (5-31); Bilirubin Total 0.6 mg/dL (0.0-1.0); Blood Urea Nitrogen 19 mg/dL (9-16); Calcium 10.2 mg/dL (8.4-10.2); Carbon Dioxide 25 mmol/L (22-29); Chloride 101 mmol/L (96-108); Estimated Glomerular Filt Rate 39; Glucose Random 122 mg/dL (60-115); Potassium 4.7 mmol/L (3.3-5.1); Sodium 138 mmol/L (135-145); Total Protein 7.9 g/dL (6.5-8.0)
--- NOTE | 2023-10-08 12:53 | PC.NURSE ---
Report given to surgery team RN.
[2023-10-08] MEDS: Lactated Ringers 1,000 ML 80 ML IVCONT ×2 (13:05→18:44)
--- NOTE | 2023-10-08 13:10 | PC.NURSE ---
Per Dr. Smith and Ted KHAN, do not give ordered gabapentin as patient took her dose this morning at home. Gabapentin held.
--- NOTE | 2023-10-08 13:10 | PC.NURSE ---
Patient stated that she has filed out paperwork for a DNR code status before. Dr. Monzon made aware. Reversal form filled out by him at bedside. Sharon CONVENTION MANAGER made aware.
--- NOTE | 2023-10-08 13:10 | HO.ANESPROP2 ---
[facility] Active Problems Active Problems: All Active Problems (Updated 10/08/23 @ 12:59 by Cat Burleson) Post surgical complication (Acute) Cerebrospinal fluid leak (Acute) Cerebrospinal fluid leak (Acute) Lumbago (Acute) Spondylolisthesis, lumbar region (Acute) Past Medical History Medical History (Updated 10/08/23 @ 12:59 by Cat Burleson) Asthma Cough History of RSV infection Back pain Hx of basal cell carcinoma Spinal stenosis Weakness Lumbar radiculopathy Peripheral neuropathy Numbness Elevated cholesterol HTN (hypertension) Family History Family history of problems with anesthesia: No Surgical History Surgical History Hx of laminectomy (~2017) History of bilateral total hip arthroplasty History of bilateral carpal tunnel release History of Problems with Anesthesia: No Social History Social History Household Members: Spouse Housing: House Are you a primary career services assistant to a significant other at home: No Do you presently have visiting nurse or other home services: No Patient Tobacco Use Status: Former Tobacco user Quit Date: Tobacco use type: Cigarette Smoked in Last 30 Days: No Use of substances other than those prescribed or required for medical reasons: No Advance Directives: No Advance Directives Information Provided: Yes Meds Allergies Allergy/AdvReac Type Severity Reaction Status Date / Time No Known Allergies Allergy Verified 10/08/23 12:59 Active Medications: Current Medications Cefazolin Sodium/Dextrose (Ancef) 2 gm in 50 mls @ 100 mls/hr IV PREOP ONE Stop: 10/08/23 13:17 Home Medications Medication Instructions Recorded Confirmed Last Taken Type allopurinol 100 mg tablet 300 mg PO DAILY 09/15/23 10/08/23 Unknown History budesonide-formoterol HFA 160 2 inh inhalation BID 09/15/23 10/08/23 09/24/23 History mcg-4.5 mcg/actuation aerosol inhaler (Symbicort) furosemide 20 mg tablet 20 mg PO .DAILY@1300 09/15/23 10/08/23 Unknown History furosemide 40 mg tablet 60 mg PO .DAILY @0800 09/15/23 10/08/23 Unknown History gabapentin 300 mg capsule 600 mg PO .DAILY@1300 09/15/23 10/08/23 09/24/23 History gabapentin 600 mg tablet 900 mg PO BID 09/15/23 10/08/23 09/24/23 History lisinopril 5 mg tablet 5 mg PO DAILY 09/15/23 10/08/23 Unknown History montelukast 10 mg tablet 10 mg PO BEDTIME 09/15/23 10/08/23 Unknown History omega 0-jpi-gsr-fish oil 1,000 mg 1 cap PO DAILY 09/15/23 10/08/23 09/15/23 History (120 mg-180 mg) capsule (Fish Oil) omeprazole 20 mg capsule,delayed 20 mg PO DAILY 09/15/23 10/08/23 09/24/23 History release raloxifene 60 mg tablet 60 mg PO DAILY 09/15/23 10/08/23 Unknown History rosuvastatin 10 mg tablet 10 mg PO BEDTIME 09/15/23 10/08/23 Unknown History albuterol sulfate 90 mcg/actuation 2 inh inhalation Q4-6H PRN 09/16/23 10/08/23 Unknown History aerosol inhaler Shortness Of Breath Or Wheezing Exam Height,Weight and Vital Signs: Height 4 ft 11 in Weight 68.039 kg Last Vital Signs Temp 98.6 F 10/08/23 12:06 Pulse 88 10/08/23 12:06 Resp 18 10/08/23 12:06 BP 122/60 10/08/23 12:06 Pulse Ox 94 10/08/23 12:06 O2 Del Method Room Air 10/08/23 12:06 Pertinent Lab Results Pertinent Lab Results: Laboratory Tests 10/08/23 12:03 WBC 13.1 H RBC 4.07 L Hgb 12.8 Hct 39.9 MCV 98.0 MCH 31.4 MCHC 32.1 RDW 14.9 Plt Count 339 MPV 10.9 Immature Gran % (Auto) 0.8 H Neut % (Auto) 74.7 H Lymph % (Auto) 16.4 L [place] % (Auto) 6.6 Eos % (Auto) 0.9 Baso % (Auto) 0.6 Lymph # (Auto) 2.2 [place] # (Auto) 0.9 Eos # (Auto) 0.1 Baso # (Auto) 0.1 Abs Immat Gran (auto) 0.11 H Absolute Neuts (auto) 9.8 H Absolute Nucleated RBC 0.000 Nucleated RBC % (auto) 0.0 PT 12.7 INR 1.0 Sodium 138 Potassium 4.7 Chloride 101 Carbon Dioxide 25 Anion Gap 17 BUN 19 H Creatinine 1.32 Estim Creat Clear Calc 29.0 Estimated GFR 39 Random Glucose 122 H Calcium 10.2 Total Bilirubin 0.6 AST 72 H ALT 23 Alkaline Phosphatase 74 Total Protein 7.9 Albumin 3.8 Airway Mallampati Class: III TM Dist: >3cm Neck ROM: Full Assessment and Plan Assessment Anesthesia Assessment: Anesthesia Plan Discussed and Chart Reviewed Final Anesthetic Review Family History of Problems with Anesthesia: No History of Problems with Anesthesia: No NPO: Yes ASA Class: III and Emergency Final Preanesthetic Review: No Changes in Pt Med Stat, Meds/Allgs Chart Reviewed, Consent Obtained/Reviewed and Anes Risks/Benef Reviewed Patient Risk: Intermediate Procedure Risk: Low Anesthetic Plan Anesthetic Plan: GA Disposition: Standard PACU
[2023-10-08] MEDS: methocarbamoL 750 MG TABLET PO (13:19)
--- NOTE | 2023-10-08 13:20 | PC.NURSE ---
Patient in preop. Dr. Monzon, Dr. Pike and Dr. Smith all aware patient ate peaches at 0800 this morning. No new orders, okay to proceed with surgery. Patient also has faint wheezing present. History of asthma. No inhalers taken this morning at home. Dr. Monzon aware and at bedside, listened to lung sounds. No new orders at this time, okay to proceed.
--- NOTE | 2023-10-08 15:06 | W.PM.OPN ---
Operative Note Operative Note Date of Service: 10/08/23 Narrative: Preoperative Diagnosis: Spinal fluid leak following lumbar laminotomy Operation: Repair a spinal fluid leak, lumbar with use of microscope Consent Informed Consent was obtained for this operation. I have explained the nature, purpose and benefits of the operation. I have discussed the risks and benefit of the operation including possible complications or adverse events with patient/family. Alternative(s) were discussed with the patient with their relative benefits and risks as well as the consequences of not accepting the operation were included in obtaining consent. Surgeon: CURLY AMBRIZ MD, PHD Procedure Assisted By: BILL Heath Description of Procedure This 78-year-old female underwent an L2 laminotomy 2 weeks ago. An incidental small durotomy occurred which was patched. The patient returned with spinal fluid leak. It was decided to do a re-exploration to close the spinal fluid leak. The procedure complications were explained. The patient was consented. The patient was brought to the operating room and endotracheally intubated. The patient was turned in prone position on the Perfecto frame. Prep and drape was done followed by timeout. The previous mid lumbar incision was opened and explored on the left vertebral side. The durotomy site was identified after which the microscope was brought in. A 6 0 Prolene was used to approximate the microscopic durotomy. Valsalva maneuver was applied and no active leakage was seen. Piece of DuraGen was used to cover the area followed by tissue dura. The incision was closed in 4 layers followed by a running nylon for the skin. An Oppsite with tegaderm was used to cover the incision. All sponge needle counts were correct. Patient was extubated and transported in stable is to recovery room. Anesthesia: General Estimated Blood Loss (ml): Minimal Duration of Surgery: Under 60 Minutes Postoperative Plan: Admit to inpatient. Flat bedrest
--- NOTE | 2023-10-08 15:09 | HO.NEUROPN_ITS ---
Neurosurgery Operative Note Date of Service: 10/08/23 Narrative: POD: 0 Procedure: CSF leak repair s/p attempted Left L2 Foraminotomy on 09/24/23. Jung was seen postoperatively in PACU. She is awake and doing well. She is still reporting mild low back pain but has good relief thus far with pain medications. Her durotomy was successfully closed. See operative notes for details. Afebrile, vital signs stable. Sensation intact to light touch. Lower extremities remain at full strength. Back dressing is dry. No active drainage. Plan: Alyssia will be admitted to [address] [place] [address] for recovery, pain management, and further evaluation. She has HOB restrictions to remain flat with logroll if needed and up to 30 degrees HOB max to eat or drink. Our team will be in to round on her in the AM. The attending Neurosurgeon Dr. Smith understands and agrees to this plan.
[2023-10-08] MEDS: fentaNYL citrate/PF 100 MCG/2 ML VIAL 50 MCG IVPUSH ×4 (15:55→16:55)
--- NOTE | 2023-10-08 15:58 | PHA.MEDREC ---
Pharmacy Consult ? Medication Reconciliation Pharmacy has completed the medication reconciliation. Reviewed med rec done by nursing
[2023-10-08] MEDS: HYDROmorphone HCl 0.5 MG/0.5 ML SYRINGE 0.25 MG IVPUSH ×4 (16:20→16:35)
[2023-10-08] MEDS: Gabapentin 300 MG CAPSULE 600 MG PO (18:02)
[2023-10-08] MEDS: Furosemide 20 MG TABLET PO (18:02)
[2023-10-08] MEDS: Acetaminophen 325 MG TABLET 975 MG PO (19:25)
[2023-10-08] MEDS: ceFAZolin Sodium/Dextrose,Iso 2 GM/50 ML PIGGYBACK IV (19:26)
--- NOTE | 2023-10-08 19:58 | PC.NURSE ---
pt states that little bit of soreness nothing much pain. CMS intact, neuro intact, AOx4, and verbalize understanding with stay in flat. lung is clear ,bs active. prvoide needs. will continue to monitor.
[2023-10-08] MEDS: Atorvastatin Calcium 40 MG TABLET PO (21:02)
[2023-10-08] MEDS: Docusate Sodium 100 MG CAPSULE PO (21:02)
[2023-10-08] MEDS: Gabapentin 600 MG TABLET 900 MG PO (21:02)
[2023-10-08] MEDS: Montelukast Sodium 10 MG TABLET PO (21:02)
[2023-10-08] MEDS: HYDROmorphone HCl 1 MG/ML SYRINGE IVPUSH (21:43)
[2023-10-09] VITALS (7 sets, daily range): BP systolic 108–159; BP diastolic 54–69; PULSE 90–96; RESP 16–20; TEMP 36.2–36.6; O2SAT 95–97
[2023-10-09] MEDS: oxyCODONE HCl Immed Release 5 MG TABLET 10 MG PO ×4 (00:38→21:04)
[2023-10-09] MEDS: Acetaminophen 325 MG TABLET 975 MG PO ×4 (02:01→19:29)
[2023-10-09] MEDS: HYDROmorphone HCl 1 MG/ML SYRINGE IVPUSH (04:20)
[2023-10-09] MEDS: Omeprazole 20 MG CAPSULE.DR PO (05:50)
[2023-10-09] MEDS: Lactated Ringers 1,000 ML 80 ML IVCONT ×2 (06:27→17:21)
[2023-10-09] MEDS: Fluticasone/Vilanterol 200/25 BLST.W.DEV 1 PUFF INHALE (08:00)
[2023-10-09] MEDS: Gabapentin 600 MG TABLET 900 MG PO ×2 (08:49→19:28)
[2023-10-09] MEDS: lisinopriL 5 MG TABLET PO (08:50)
[2023-10-09] MEDS: allopurinoL 300 MG TABLET PO (08:50)
[2023-10-09] MEDS: Furosemide 20 MG TABLET 60 MG PO (08:50)
[2023-10-09] MEDS: Docusate Sodium 100 MG CAPSULE PO ×2 (08:50→19:29)
--- NOTE | 2023-10-09 08:50 | HO.NEURO.PN ---
Neurosurgery Operative Note Date of Service: 10/09/23 Narrative: Postoperative day 1. Repair of CSF leak Patient reports feelings of dizziness and headache are gone. She still has her leg pain obviously which we did not expect to go away. She has been flattened bed overnight allowed to sit up to eat and drink. So far is when she has been sitting up she has not had any postural headaches. She denies any wound leakage from her back. She denies any chest pain, shortness of breath, double vision, tingling numbness weakness etc. Afebrile, vital signs are stable Physical exam: Patient is awake alert oriented lying in bed, no acute distress, full strength of bilateral upper and lower extremities, back dressing is clean and dry with no signs of CSF leak. Face is symmetric, pupils equal responsive reactive to light, speech fluent affect appropriate. Impression: Postop day 1. Repair of CSF leak pseudomeningocele, overall doing okay has been able to sit up to eat without any signs of headache. Her wound is perfectly dry. Her neurological exam is intact. I will discuss with Dr. Smith as to whether he wants to continue her flat for another day or 2 or allow her to get up and walk around and go back to [facility].
--- NOTE | 2023-10-09 09:41 | MHC.CLN ---
NUTRITION CONSULT FOR RECENT WEIGHT LOSS. REVIEW OF EMR SHOWS SURGERY X 2 THIS MONTH, AND RSV ACUTE ILLNESS 08/29/23. SURGERY PLUS ACUTE ILLNESS LIKELY CONTRIBUTORS TO WEIGHT LOSS. SHOWS -6.4% X 3 WEEKS. BMI=30.3. NO REPORTED CONCERNS WITH CURRENT INTAKE. DIET=REGULAR. NO ADDITIONAL NUTRITION INTERVENTIONS AT THIS TIME.
--- NOTE | 2023-10-09 12:35 | HO.POSTANES ---
Post Anesthesia Evaluation Post Anesthesia Evaluation Date of Service: 10/09/23 Vital Signs: Vital Signs Temp Pulse Resp BP Pulse Ox O2 Del Method O2 Flow Rate 10/09/23 11:25 97.8 F 96 20 108/54 L 96 Nasal Cannula 2 10/09/23 08:03 94 16 10/09/23 08:00 97.3 F 93 18 117/55 L 97 Nasal Cannula 2 10/09/23 04:00 97.6 F 95 16 111/58 L 95 Nasal Cannula 2 Anesthesia: General Endotracheal-GETA Mental Status: Awake Pain Control: Satisfactory Nausea/Vomiting: None Hydration: Adequate Anesthesia-Related Issues: No Anes. Related Issues
[2023-10-09] MEDS: Gabapentin 300 MG CAPSULE 600 MG PO (12:40)
[2023-10-09] MEDS: Furosemide 20 MG TABLET PO (12:40)
[2023-10-09] MEDS: Montelukast Sodium 10 MG TABLET PO (19:29)
[2023-10-09] MEDS: Atorvastatin Calcium 40 MG TABLET PO (19:29)
[2023-10-10] MEDS: HYDROmorphone HCl 1 MG/ML SYRINGE IVPUSH ×2 (00:38→06:36)
[2023-10-10 03:51] VITALS: BP 137/62; PULSE 59; RESP 18; TEMP 36.3; O2SAT 95
[2023-10-10] MEDS: oxyCODONE HCl Immed Release 5 MG TABLET 10 MG PO ×2 (03:57→08:27)
[2023-10-10] MEDS: Lactated Ringers 1,000 ML 80 ML IVCONT (05:54)
[2023-10-10] MEDS: Omeprazole 20 MG CAPSULE.DR PO (06:01)
[2023-10-10 06:59] VITALS: BP 143/71; PULSE 74; RESP 17; TEMP 36.6; O2SAT 95
[2023-10-10] MEDS: Acetaminophen 325 MG TABLET 975 MG PO (08:02)
[2023-10-10] MEDS: Gabapentin 600 MG TABLET 900 MG PO (08:03)
[2023-10-10] MEDS: Docusate Sodium 100 MG CAPSULE PO (08:03)
[2023-10-10] MEDS: allopurinoL 300 MG TABLET PO (08:04)
[2023-10-10] MEDS: Furosemide 20 MG TABLET 60 MG PO (08:05)
[2023-10-10] MEDS: lisinopriL 5 MG TABLET PO (08:05)
[2023-10-10] MEDS: Fluticasone/Vilanterol 200/25 BLST.W.DEV 1 PUFF INHALE (08:15)
[2023-10-10 08:18] VITALS: PULSE 96; RESP 16; O2SAT 93
[2023-10-10 10:52] VITALS: BP 118/61; PULSE 89; RESP 16; TEMP 36.1; O2SAT 96
--- NOTE | 2023-10-10 11:20 | HO.NEURO.PN ---
Neurosurgery Operative Note Date of Service: 10/10/23 Narrative: Postoperative day 2. Repair of CSF leak pseudomeningocele Patient reports no issues with headaches overnight, the nurses just got her up to the chair this morning. She feels a little bit of dizziness but otherwise is feeling okay. No headaches. No reports of leaking from her wound. She was urinating okay and had a bowel movement. Denies any tingling numbness weakness in the legs. Denies any chest pain shortness of breath etc.. Her appetite is poor but she is tolerating food. Afebrile, vital signs stable Physical exam: Patient is awake alert oriented sitting up in a chair no acute distress she is able to easily follow commands has full strength of bilateral lower extremities, midline back dressing is clean and dry, I removed it underneath their sutures in place, no signs of CSF leak or subcutaneous fluid collection. Impression: Postop day 2. Repair of CSF leak from previous attempted lumbar surgery. She does not report any headaches, her wound is dry. I spoke to Dr. Smith, we anticipate she can go back to [facility] today. Physical therapy is working with her now. She continues to have the left leg pain that was her original presenting problem to us in the clinic. Unfortunately we do not have a quick solution for that as the options to fix it are spinal fusion surgery or possibly spinal cord stimulator. This is something we will talk about at the patient's follow-up after we have a chance to review her CT scan. The plan will be to discharge her this afternoon.
--- NOTE | 2023-10-10 11:23 | P.DS_ITS ---
DS: Providers Provider Date of Service: 10/08/23 Date of admission: 10/08/23 15:00 Date of discharge: 10/10/23 Primary care physician: Unknown Physician Admitting clinician: Jamie Smith DS: Diagnosis Discharge Diagnosis (1) Cerebrospinal fluid leak: Status: Acute DS: Summary Hospital Course Hospital Course: Mrs Bowman is a 78-year-old female with extensive lumbar surgical history, who underwent an attempted decompression at the left L2-3 region a few weeks ago and unfortunately due to the risk of destabilizing her, what we are unable to complete the surgery, and also had an incidental durotomy at that time. Unfortunately, upon discharge him being sent back to her rehab the spinal fluid continued to leak from the durotomy site informed a pseudomeningocele which ultimately started leaking out from her wound. She was readmitted on October 08 for exploration of previous lumbar wound and repair of durotomy site. At the time of the surgery, we were able to place a stitch in the dura and patch the site over again. She tolerated the surgery fine. Her wound was closed with external sutures. We brought her to the nursing unit [address] [place] [address] where she began her recovery. The plan was to keep her flat for 24 hours which we did. This was to allow the site of the dural opening repair to develop some scar tissue before we let her sit up. We monitor her for signs and symptoms of CSF leak and she had no signs of a headache or wound leakage, so we allowed her to sit up to eat but then continued to be flat. After total of 48 hours of being flat we allowed her to sit up and get out of bed sit in a chair. She did not have any significant headaches or leakage from her wound. We therefore let her work with physical therapy so we can disposition her back to her rehabilitation center [facility] [place] where she can continue her convalescence.. During the patient's hospitalization, she was able to tolerate a diet and was voiding okay. She had a bowel movement. She remained afebrile with vital signs stable on room air. Her pain was managed with oxycodone. We will include a prescription for that upon discharge. That can be adjusted as needed at the rehab. She can be started on subcutaneous heparin for DVT prophylaxis tomorrow. She will need to have a follow-up to have her stitches removed. Our office will coordinate that appointment. She does not need a brace. She can be out of bed as tolerated. If she starts to develop a headache or any wound leakage, please call our office at [phone]. Unfortunately she still does have the left leg pain that was her original presentation to us in the clinic and that we will have to address at a later date with either more surgery or consideration of a spinal cord stimulator. But for the time being, we will let her recover and discuss that at her follow-up in clinic. I will include a list of other discharge instructions with this discharge summary. Physical exam upon discharge: The patient is awake alert oriented no acute distress, she has full strength of bilateral upper and lower extremities, no pronator drift, face is symmetric, pupils equal responsive reactive to light, speech fluent affect appropriate, she has a midline back incision which is clean and dry, I removed her outer dressing today and the sutures are intact, no signs of subcutaneous CSF collection. Time Attestation Discharge coordination time: Less than 30 minutes Quality: Safe Use of Opioids Does Pt have an Active Cancer Diagnosis on the Problem List?: No Quality: Stroke Does the patient have a stroke diagnosis?: No Physical Exam Vital Signs: Vital Signs: Last Vital Signs Temp 97 F 10/10/23 10:52 Pulse 89 10/10/23 10:52 Resp 16 10/10/23 10:52 BP 118/61 10/10/23 10:52 Pulse Ox 96 10/10/23 10:52 O2 Del Method Nasal Cannula 10/10/23 10:52 O2 Flow Rate 2 10/10/23 10:52 BMI result Body Mass Index 30.3 Discharge Plan Discharge Anticipated Discharge Date/Time: 10/10/23 14:32 Patient Disposition: Xfer Inpatient Rehab Fac Discharge Diagnosis: Repair of CSF leak/pseudomeningocele Referrals: Physician,Unknown J [Primary Care Provider] - 1 Week Discharge Medications: New oxycodone 5 mg tablet See Rx Instructions .ROUTE .COMPLEX PRN (Reason: pain) Qty: 40 0RF Rx Instructions: 1-2 tabs po q4 hour prn pain; Partial Fill upon patient request. Continued allopurinol 100 mg tablet 300 mg PO DAILY furosemide 20 mg Tablet 20 mg PO .DAILY@1300 Patient Comments: 60 mg am, 20 mg late afternoon omega 6-pyi-yjl-fish oil [Fish Oil] 1,000 mg (120 mg-180 mg) Capsule 1 cap PO DAILY gabapentin 600 mg tablet 900 mg PO BID gabapentin 300 mg capsule 600 mg PO .DAILY@1300 omeprazole 20 mg capsule,delayed release(DR/EC) 20 mg PO DAILY raloxifene 60 mg tablet 60 mg PO DAILY montelukast 10 mg tablet 10 mg PO BEDTIME rosuvastatin 10 mg tablet 10 mg PO BEDTIME budesonide-formoterol [Symbicort] 160-4.5 mcg/actuation HFA aerosol inhaler 2 inh inhalation BID furosemide 40 mg tablet 60 mg PO .DAILY @0800 lisinopril 5 mg Tablet 5 mg PO DAILY albuterol sulfate 90 mcg/actuation HFA aerosol inhaler 2 inh inhalation Q4-6H PRN (Reason: Shortness Of Breath Or Wheezing) tramadol 50 mg tablet 50 mg PO Q6H PRN (Reason: pain) Qty: 20 0RF Discharge Orders: Discharge Order (Routine); Ordered 10/10/23 Ordered By: Gabriel Gonzalez Diet: Advance to usual diet Activity on Discharge: As tolerated Stand Alone Forms: Patient Portal Discharge page Activity Restrictions/Additional Instructions: After your spinal surgery we ask you to observe the following restrictions/guidelines: Activity: It is normal to feel some discomfort as you increase your activity, but that will improve with time. We ask you avoid heavy lifting or acitivities that cause pain. As a general rule, 8lbs is a safe limit for lifting right after surgery. Walk as much as you feel comfortable but not to exhaustion. You will feel extra tired the first few days after surgery. Stay well hydrated. It is OK to walk up and down stairs You may return to driving when you are off narcotics (such as vicodin, oxycodone, dilaudid, etc), and you are back to normal functional capacity. If you have any concerns please check with office before driving. Return to work is specific to each patient and each surgery, so please speak with your doctor/PA at first follow up. Please bring paperwork such as FMLA at that time if you need it filled out. Medications: For optimum pain control, it is best to start with a combination of 500 mg of Tylenol every 4 hours with 600 mg of Motrin every 8 hours, and use narcotics as needed in between for breakthrough pain. We will give you a short supply of narcotics after surgery (usually one weeks worth). If you need more please call the office but do not use more than prescribed. You will need to give our office 48 hours notice if you need narcotics refilled and we do not fill narcotics on weekends or evenings. If you are on a narcotic, it is a good idea to take a stool softener such as colace or senna to avoid constipation If you take blood thinner such as aspirin, Plavix, Coumadin, Effient, Eliquis etc for conditions such as Afib, DVT, Pulmonary embolus, coronary disease, stents etc please speak with your surgeon about specific details as to when you can resume these medications. You can resume NSAIDs on post op day 1 (eg: Motrin, Naproxen, etc). Follow up: Please call the office, , after surgery to arrange a 3 week follow up for wound check. Wound Care: You may remove your dressing on the first day after surgery. ?You may ?leave open to air. Please do not remove the steri strips underneath. they will fall off on their own in one week. IT IS NORMAL FOR THE WOUND TO OOZE OR BE BLOODY FOR A FEW DAYS AFTER SURGERY. ?IF THIS HAPPENS JUST PLACE NEW DRESSING OVER IT TO AVOID STAINING CLOTHES. You may shower on post op day # 1 We ask that you do not let the water soak the wound. If it does get wet, just towel dry lightly. Please do not scrub your incision or place any type of chemical/ointment on the wound. No tub baths, pools or jacuzzis for one month. If you have any leaking or redness from your wound, or fevers, please call office Care Plan Goals: discharge to rehab f/u in 10 days for suture removal Health Concerns: none Plan of Treatment: discsharge to rehab Assessment: stable
[2023-10-10 11:28] VITALS: BP 118/61; PULSE 89; O2SAT 96
--- NOTE | 2023-10-10 12:11 | MHC.CM.PN ---
pt from [facility] where she will return when dcd which she is today will trans[port
[2023-10-10] MEDS: Gabapentin 300 MG CAPSULE 600 MG PO (12:51)
[2023-10-10] MEDS: Furosemide 20 MG TABLET PO (12:52)
--- NOTE | 2023-10-10 15:25 | MHC.CARE ---
pt dcd to [facility] to transport
[2023-10-10 16:00] VITALS: BP 118/69; PULSE 69; RESP 18; TEMP 36.5; O2SAT 97
== END 2023-10-10 16:40 | disposition skilled nursing facility (03) | DRG 30 ==
LOC: HO.ED 11:52 → HO.SSS 12:46 → HO.SSSA 15:53 → HO.S3 16:32
PROVIDERS: Physician Assistant; Admitting Provider Physician Assistant; Emergency Provider Emergency Medicine; Visit Provider Neurological Surgery
PROC: 00QT0ZZ Repair Spinal Meninges, Open Approach (ICD-10-PCS; principal; 2023-10-08 14:20)
DX: G96.09 Other spinal cerebrospinal fluid leak (principal); Y83.8 Other surgical procedures as the cause of abnormal reaction of the patient, or of later complication, without mention of misadventure at the time of the procedure; E78.00 Pure hypercholesterolemia, unspecified; I10 Essential (primary) hypertension; Z87.891 Personal history of nicotine dependence; Z79.899 Other long term (current) drug therapy
CPT/HCPCS: 36415; 80053; 85025; 85610; 86850; 86900; 86901; 93005; 94640; 97161; 99024; 99212; 99285; J0131; J0690; J1100; J1170; J2405; J2704; J3010; J7120; Q4100

== ENCOUNTER → 2023-10-08 12:10 | Outpatient (BNV) | payer MEDICARE, SELFPAY | PROVIDERS: Admitting Provider Physician Assistant; Emergency Provider Emergency Medicine; Visit Provider Internal Medicine Cardiovascular Disease | DX: R94.31 Abnormal electrocardiogram [ECG] [EKG] (principal) | CPT/HCPCS: 93010 ==

== ENCOUNTER → 2023-10-08 12:41 | Outpatient (BNV) | payer MEDICARE, SELFPAY | PROVIDERS: Emergency Provider Emergency Medicine; Visit Provider Neurological Surgery | DX: G96.00 Cerebrospinal fluid leak, unspecified (principal); Z48.89 Encounter for other specified surgical aftercare | CPT/HCPCS: 63707; 69990; 99024; 99499 ==

== ENCOUNTER 2023-10-29 09:56 | Outpatient (AMB) | payer MEDICARE, SELFPAY ==
--- NOTE | 2023-10-29 10:02 | MHC.OFFVIS ---
Intake Intake Visit Reasons: 1st post op Technical Services Rep Required: No Allergies No Known Allergies Allergy (Verified 10/08/23 12:59) [facility] Medical History (Updated 10/16/23 @ 00:03 by Marcell Gabriel) Asthma Cough History of RSV infection Back pain Hx of basal cell carcinoma Spinal stenosis Weakness Lumbar radiculopathy Peripheral neuropathy Numbness Elevated cholesterol HTN (hypertension) Surgical History Hx of laminectomy (~2017) History of bilateral total hip arthroplasty History of bilateral carpal tunnel release Social History Household Members: Spouse Housing: Other Housing Other:: mobile home park Are you a primary primary care pediatrician to a significant other at home: No Do you presently have visiting nurse or other home services: No Patient Tobacco Use Status: Former Tobacco user Quit Date: Tobacco use type: Cigarette Years Smoked: 25 service: No Assessment & Plan Assessment & Plan (1) Post surgical complication: Code(s): T81.9XXA - Unspecified complication of procedure, initial encounter Plan Procedure: Repair a spinal fluid leak, lumbar, with use of microscope. Alyssia comes in today for her 1st postoperative visit. She reports that she has been doing well since her previous surgery. She returned home from her rehab facility on Thursday. She is ambulating well with the assistance of a walker and is getting around her house okay. She states that she is feeling much better, and has had no dizziness or headaches for the last couple of weeks. I removed the running suture that was overlying the incision site during this visit. It was fairly imbedded in, so the area needed to be moistened before the sutures could be removed. She tolerated the removal well. The area was cleansed with isopropyl alcohol and covered with a layer of Exofin. No new neurological deficits. Sensation grossly intact. Patient is able to ambulate well with the assistance of a walker, requires help to rise from a seated position. Incision site is closed, suture now removed, area cleansed and covered with exofin. No significant swelling / bleeding / hematoma or drainage. We will follow-up with the patient in 6 weeks for her 2nd postoperative visit. Ted Smith MD,PhD [facility] Coding Level of Care Code Global (91334) Diagnoses Post surgical complication T81.9XXA
== END 2023-10-29 10:49 | disposition home or self-care (01) ==
PROVIDERS: Visit Provider Physician Assistant
DX: T81.9XXA Unspecified complication of procedure, initial encounter (principal)
CPT/HCPCS: 99024

== ENCOUNTER → 2023-10-29 09:56 | Outpatient (BNVA) | payer MEDICARE, SELFPAY | PROVIDERS: Visit Provider Physician Assistant | DX: T81.9XXD Unspecified complication of procedure, subsequent encounter (principal); Z98.890 Other specified postprocedural states | CPT/HCPCS: 99212 ==

== ENCOUNTER 2023-12-18 09:46 | Outpatient (AMB) | payer MEDICARE, SELFPAY ==
--- NOTE | 2023-12-18 09:52 | A.SPINEOV_ITS ---
Intake Intake Visit Reasons: 2nd post op Intake Note: Ms. Bowman is here today for 2nd post op. Disability Examiner Required: No Allergies No Known Allergies Allergy (Verified 10/08/23 12:59) Assessment & Plan Assessment & Plan (1) Cerebrospinal fluid leak: Code(s): G96.00 - Cerebrospinal fluid leak, unspecified Plan Procedure: Repair a spinal fluid leak, lumbar with use of microscope S/P partial L2 laminotomy Alyssia comes in today after having a spinal fluid leak repair status post a partial L2 laminotomy. She reports that much of her left-sided lower extremity symptoms have continued to persist despite attempted continued exercise and stretching. She discussed that she does not feel she is interested in subsequent surgeries or other conservative interventions at this time. I encouraged her that the surgery may still provide some relief as the lamina was decompress to get down to the actual cauda equina. Ideally she will have some relief of symptoms in the coming months. No new neurological deficits. Sensation grossly intact. Patient is able to ambulate well, rises from a seated position without difficulty. Incision site is closed and well healed, with no signs of drainage. Ted Smith MD,PhD [facility] Coding Level of Care Code Global (80907) Diagnoses Cerebrospinal fluid leak G96.00
== END 2023-12-18 10:24 | disposition home or self-care (01) ==
PROVIDERS: Visit Provider Physician Assistant
DX: G96.00 Cerebrospinal fluid leak, unspecified (principal)
CPT/HCPCS: 99024

== ENCOUNTER → 2023-12-18 09:46 | Outpatient (BNVA) | payer MEDICARE, SELFPAY | PROVIDERS: Visit Provider Physician Assistant | DX: G96.00 Cerebrospinal fluid leak, unspecified (principal); Z98.890 Other specified postprocedural states | CPT/HCPCS: 99212 ==